=== PATIENT | male | born 1945 | race Caucasian/White ===

== ENCOUNTER 2017-10-08 09:16 | Day surgery (SDC) | payer OTHER ==
[2017-10-08 09:51] VITALS: TEMP 97.8; BMI 26.6
[2017-10-08 12:17] VITALS: BP 120/74; PULSE 66
--- NOTE | 2017-10-11 10:54 | PATH ---
Surgical Pathology Report Patient Name: LUCERO CLAYTON [facility]. Rec. #: [id number] /Age/Gender: 1945 (Age: 71) / M Account: [id number] Location: [facility]-ENDOSCOPY Taken: 10/08/2017 Received: 10/08/2017 Reported: 10/11/2017 Physicians: Claritza Mueller M.D. Specimen(s) Received A: PROXIMAL RIGHT COLON POLYP B: MID RIGHT COLON POLYP C: POLYP SIGMOID Clinical History Preoperative diagnosis: Adenoma surveillance Postoperative diagnosis: Polyps, diverticulosis Final Diagnosis A. PROXIMAL COLON, RIGHT, POLYP, POLYPECTOMY: HYPERPLASTIC POLYP. B. MID COLON, RIGHT, POLYP, POLYPECTOMY: TUBULAR ADENOMA. C. SIGMOID COLON, POLYP, POLYPECTOMY: HYPERPLASTIC POLYP. Electronically Signed Orquidea Diaz M.D. Gross Description A. Received in formalin, labeled "biopsy proximal right colon polyp" are 4 bailey, irregular portions of soft tissue ranging from 0.2-0.5 cm. in greatest dimension. The specimens are submitted in toto in one cassette. B. Received in formalin, labeled "biopsy mid right colon polyp" are 3 bailey, irregular portions of soft tissue averaging 0.3 cm. in greatest dimension. The specimens are submitted in toto in one cassette. C. Received in formalin, labeled "biopsy sigmoid polyp" are 3 bailey, irregular portions of soft tissue averaging 0.3 cm. in greatest dimension. The specimens are submitted in toto in one cassette. DL/10/08/2017 saudi10/08/2017
== END 2017-10-08 11:35 | disposition home or self-care (01) ==
LOC: JASU-ENDO 09:16
PROVIDERS: ATTEND Internal Medicine Gastroenterology
PROC: 0DBN8ZX Excision of Sigmoid Colon, Via Natural or Artificial Opening Endoscopic, Diagnostic (ICD-10-PCS; 2017-10-08)
PROC: 0DBK8ZX Excision of Ascending Colon, Via Natural or Artificial Opening Endoscopic, Diagnostic (ICD-10-PCS; principal; 2017-10-08 10:00)
DX: Z12.11 Encounter for screening for malignant neoplasm of colon (principal); Z86.010 Personal history of colon polyps; D12.2 Benign neoplasm of ascending colon; D12.5 Benign neoplasm of sigmoid colon; K57.30 Diverticulosis of large intestine without perforation or abscess without bleeding
CPT/HCPCS: 88305-TC

== ENCOUNTER 2022-02-13 14:40 | Emergency (ER) | payer OTHER ==
[2022-02-13 14:50] VITALS: BP 113/77; PULSE 79; TEMP 97.3; BMI 26.7
[2022-02-13] MEDS ORDERED: SODIUM CHLORIDE 0.9% 500 ML INFUS.BAG IV ONE (15:55)
[2022-02-13 16:53] LABS: BASO % 0.3 % (0-2.0); EOS % 4.1 % (0-4.5); HEMATOCRIT 41.7 % (35.4-49); LYMPH % 10.5 % (8-40); MCH 29.7 pg (25.7-33.7); MCHC 33.4 g/dl (32.0-35.9); MEAN CELL VOLUME 88.9 fl (80-96); MEAN PLT VOLUME 8.6 fl (7.5-11.1); MONO % 7.1 % (3.8-10.2); PLATELET COUNT 191 10^3/uL (134-434); RBC 4.69 M/mm3 (4.00-5.60); RDW 13.2 % (11.9-15.9); WHITE BLOOD COUNT 12.5 K/mm3 (4.0-10.0)
[2022-02-13 16:55] LABS: PH,URINE 5.5 (5.0-8.0); URINE APPEARANCE CLEAR; URINE BILIRUBIN NEGATIVE (NEGATIVE); URINE COLOR YELLOW; URINE GLUCOSE (UA) NEGATIVE (NEGATIVE); URINE KETONE NEGATIVE (NEGATIVE); URINE LEUK ESTERASE NEGATIVE (NEGATIVE); URINE NITRITE NEGATIVE (NEGATIVE); URINE PROTEIN NEGATIVE (NEGATIVE); URINE UROBILINOGEN 0.2 mg/dL (0.2-1.0)
[2022-02-13 17:07] LABS: INR 1.03 (0.83-1.09); PROTHROMBIN TIME (PATIENT) 11.9 SEC (9.7-13.0)
[2022-02-13 17:40] LABS: BLOOD UREA NITROGEN 23.2 mg/dL (7-18); CALCIUM 9.5 mg/dL (8.5-10.1); MAGNESIUM 2.5 mg/dL (1.8-2.4)
[2022-02-13 17:45] LABS: BILIRUBIN,TOTAL 0.5 mg/dL (0.2-1); TOT PROT 7.6 g/dl (6.4-8.2)
== END 2022-02-13 19:42 | disposition home or self-care (01) ==
LOC: JER 14:40
DX: G45.4 Transient global amnesia (principal)
CPT/HCPCS: 36415; 70450-TC; 80053; 81003; 82550; 82553; 83735; 84484; 85025; 85610; 85730; 87086; 93005; 93010; 99285-25

== ENCOUNTER 2022-04-13 04:33 | Day surgery (SDC) | payer OTHER ==
[2022-04-13 08:10] VITALS: BMI 26.1
[2022-04-13 09:26] VITALS: TEMP 96.4
[2022-04-13 10:26] VITALS: BP 124/75; PULSE 50
== END 2022-04-13 10:25 | disposition home or self-care (01) ==
LOC: JASU-ENDO 04:33
PROVIDERS: ATTEND Internal Medicine Gastroenterology
PROC: 0DBF8ZX Excision of Right Large Intestine, Via Natural or Artificial Opening Endoscopic, Diagnostic (ICD-10-PCS; 2022-04-13)
PROC: 0DBN8ZX Excision of Sigmoid Colon, Via Natural or Artificial Opening Endoscopic, Diagnostic (ICD-10-PCS; 2022-04-13)
PROC: 0DBK8ZX Excision of Ascending Colon, Via Natural or Artificial Opening Endoscopic, Diagnostic (ICD-10-PCS; principal; 2022-04-13 09:00)
DX: Z12.11 Encounter for screening for malignant neoplasm of colon (principal); D12.2 Benign neoplasm of ascending colon; D12.5 Benign neoplasm of sigmoid colon; K62.1 Rectal polyp; K57.30 Diverticulosis of large intestine without perforation or abscess without bleeding; K64.8 Other hemorrhoids; Z86.010 Personal history of colon polyps; Z80.0 Family history of malignant neoplasm of digestive organs
CPT/HCPCS: 88305-TC